=== PATIENT | male | born 1965 | race Caucasian/White ===

== ENCOUNTER 2017-06-01 09:15 | Outpatient (CLI) | payer BC ==
[2017-06-01 12:51] LABS: ALT (SGPT) 21 U/L (8-55); AST (SGOT) 14 U/L (5-34); Albumin 3.9 g/dL (3.5-5.0); Alkaline Phosphatase 137 U/L (40-150); Anion Gap 14 mmol/L (10-20); BUN (Urea Nitrogen) 14 mg/dL (8.9-20.6); Bilirubin, Total 0.3 mg/dL (0.2-1.2); Calc. Creatinine Clearance 0 mL/min (70-130); Calcium 8.5 mg/dL (7.8-10.44); Carbon Dioxide 25 mmol/L (22-29); Cardiac Risk 6.3 (Less than 4.5); Chloride 104 mmol/L (98-107); Cholesterol 163 mg/dl (< 200 Desired); Estimated GFR-MDRD 62; Globulin 2.7 g/dL (2.4-3.5); Glucose 105 mg/dL (70-105); HDL Cholesterol 26 mg/dL (>60 Neg Risk); LDL Cholesterol, Calculated 86 mg/dL; Potassium 3.9 mmol/L (3.5-5.1); Protein, Total 6.6 g/dL (6.0-8.3); Sodium 139 mmol/L (136-145); Triglycerides 257 mg/dL (Less than 150)
[2017-06-01 13:03] LABS: Hemoglobin 15.3 g/dL (14.0-18.0); Mean Corpuscular Hemoglobin 30.6 pg (27.0-31.0); Mean Platelet Volume 8.4 fL (7.4-10.4); Platelet Count 183 thou/uL (130-400); RBC Distribution Width 12.3 % (11.5-14.5); Red Blood Cell (RBC) Count 5.01 mill/uL (4.70-6.10); White Blood Cell (WBC) Count 7.5 thou/uL (4.8-10.8)
[2017-06-01 13:16] LABS: Eosinophils 3 % (0-10); Lymphocytes 40 % (21-51); MDiff Complete? YES; Monocytes 3 % (0-10); Neutrophil 54 % (42-75)
== END 2017-06-01 09:16 | disposition home or self-care (01) ==
LOC: HPCALD 09:15
PROVIDERS: ATTEND Family Medicine
DX: I10 Essential (primary) hypertension (principal)
CPT/HCPCS: 36415; 80053; 80061; 84443; 85025

== ENCOUNTER 2017-06-18 09:26 | Outpatient (CLI) | payer BC | END 2017-06-18 09:27 | disposition home or self-care (01) | LOC: BURRAD 09:26 | PROVIDERS: ATTEND Family Medicine | DX: M25.561 Pain in right knee (principal); M79.671 Pain in right foot ==

== ENCOUNTER 2018-07-27 21:23 | Emergency (ER) | payer BC ==
[2018-07-27 21:56] LABS: Bilirubin Negative (Negative); Blood, Urine Negative (Negative); Clarity Cloudy (Clear); Glucose, Urine (Dipstick) Negative (Negative); Leukocyte Large (Negative); Nitrite Positive (Negative); Protein, Urine (Dipstick) Negative (Neg-Trace); Specific Gravity, Urine 1.015 (1.005-1.030); Urobilinogen 0.2 mg/dL (0.2-1.0)
[2018-07-27 22:08] LABS: Bacteria/HPF 3+ HPF (None Seen); Crystals/HPF 2+ AMORPH URATES HPF (Negative); RBC/HPF 0-3 HPF (0-3); Squamous Epithelial 0-3 HPF (0-3)
[2018-07-27] MEDS ORDERED: Phenazopyridine HCl 97.5 MG TABLET ONE (22:28)
[2018-07-27] MEDS ORDERED: Ciprofloxacin 500 MG TAB ONE (22:28)
== END 2018-07-27 22:30 | disposition home or self-care (01) ==
LOC: BURERS 21:23
DX: N39.0 Urinary tract infection, site not specified (principal); E78.5 Hyperlipidemia, unspecified; I10 Essential (primary) hypertension; M10.9 Gout, unspecified; Z79.899 Other long term (current) drug therapy
CPT/HCPCS: 81003; 81015; 87077; 87086; 87186; 87491; 87591; 99283

== ENCOUNTER 2019-07-19 21:29 | Emergency (ER) | payer BC ==
[2019-07-19] MEDS ORDERED: Dexamethasone 4 MG TAB ONE (21:58)
[2019-07-19] MEDS ORDERED: traMADol HCl 50 MG TAB ONE (21:58)
[2019-07-19] MEDS ORDERED: Sulfameth/Trimethoprim DS 800-160mg TAB ONE (21:59)
== END 2019-07-19 22:02 | disposition home or self-care (01) ==
LOC: BURERS 21:29
DX: J01.90 Acute sinusitis, unspecified (principal); E78.5 Hyperlipidemia, unspecified; E78.00 Pure hypercholesterolemia, unspecified; I10 Essential (primary) hypertension; M10.9 Gout, unspecified; Z79.899 Other long term (current) drug therapy
CPT/HCPCS: 99283; J8540

== ENCOUNTER 2019-12-05 16:08 | Emergency (ER) | payer BC | END 2019-12-05 17:45 | disposition home or self-care (01) | LOC: BURERS 16:08 | DX: J11.1 Influenza due to unidentified influenza virus with other respiratory manifestations (principal); I10 Essential (primary) hypertension; M10.9 Gout, unspecified; Z79.82 Long term (current) use of aspirin; Z79.899 Other long term (current) drug therapy | CPT/HCPCS: 87804; 87807; 99283 ==

== ENCOUNTER 2021-06-03 08:49 | Outpatient (CLI) | payer BC | END 2021-06-03 08:50 | disposition home or self-care (01) | LOC: BURRAD 08:49 | PROVIDERS: ATTEND Family Medicine | DX: M72.2 Plantar fascial fibromatosis (principal); M19.072 Primary osteoarthritis, left ankle and foot ==

== ENCOUNTER 2022-01-14 18:38 | Emergency (ER) | payer BC | END 2022-01-14 19:23 | disposition home or self-care (01) | LOC: BURERS 18:38 | DX: I10 Essential (primary) hypertension (principal); E78.5 Hyperlipidemia, unspecified; E78.00 Pure hypercholesterolemia, unspecified; M10.9 Gout, unspecified | CPT/HCPCS: 99282 ==

== ENCOUNTER 2024-01-19 17:11 | Emergency (ER) | payer BC | END 2024-01-19 17:49 | disposition home or self-care (01) | LOC: BURERS 17:11 | DX: J06.9 Acute upper respiratory infection, unspecified (principal); I10 Essential (primary) hypertension | CPT/HCPCS: 99282 ==